=== PATIENT | male | born 1995 | race Caucasian/White ===

== ENCOUNTER 2017-01-04 21:58 | Emergency (ER) | payer OTHER ==
[~2017-01-04] VITALS: Ht 175.3 cm; Wt 70.5 kg
[2017-01-04 22:10] VITALS: BP 141/92
[2017-01-04] MEDS ORDERED: RISP0.253 PO (22:17)
[2017-01-04] MEDS ORDERED: LITH150C PO (22:17)
[2017-01-04] MEDS ORDERED: PLEASE ENTER ALLERGIES MC SCH ×2 (22:30)
[2017-01-04] MEDS ORDERED: LORazepam 1MG TABLET PO ONE (22:30)
[2017-01-04] MEDS ORDERED: LORazepam 1MG TABLET ONE (22:38)
== END 2017-01-04 23:14 | disposition left against medical advice (07) ==
LOC: ED 23:05
DX: F41.1 Generalized anxiety disorder (principal); F43.12 Post-traumatic stress disorder, chronic; F31.9 Bipolar disorder, unspecified
CPT/HCPCS: 99284

== ENCOUNTER 2020-06-01 02:14 | Emergency (ER) | payer MEDICAID, OTHER ==
[~2020-06-01] VITALS: Ht 175.3 cm; Wt 74.0 kg
[~2020-06-01 02:14] MED LIST: LITH150C PO; RISP0.253 PO
--- NOTE | 2020-06-01 02:42 | NUR ---
Pt undressed, belongings in bag x1 to storage locker. Pt provided urine sample. He is calm, pleasant and cooperative. States has never had any SI attempts in his lifetime, has been on meth everyday and stopped taking his abilify and lithium in jan. Says he hears voices not sure what they are saying but he says he has been very anxious and has thoughts of wanting to hurt himself but with no plan. Courtney, snacks provided for pt. Room, security cleared, doors down. Sitter in line of site.
[2020-06-01] MEDS ORDERED: abilify (02:54)
--- NOTE | 2020-06-01 02:55 | NUR ---
x1 bag unsearched belongings labelled and sealed to locked storage cabinet.
[2020-06-01 02:59] LABS: AMPHETAMINE SCREEN, URINE Positive (Negative); BARBITURATE SCREEN, URINE Negative (Negative); BENZODIAZEPINE SCREEN, URINE Negative (Negative); CANNABINOID SCREEN, URINE Positive (Negative); COCAINE SCREEN, URINE Negative (Negative); METHADONE SCREEN, URINE Negative (Negative); OPIATE SCREEN, URINE Negative (Negative)
[2020-06-01 03:03] LABS: BASOPHILS % (AUTO) 1 % (0-1); EOSINOPHILS % (AUTO) 3 % (1-7); LYMPHOCYTES % (AUTO) 38 % (22-44); MEAN CORPUSCULAR HEMOGLOBIN 28.6 pg (27.5-34.5); MEAN CORPUSCULAR HGB CONC 34.3 g/dL (33.2-36.2); MEAN PLATELET VOLUME 9.1 fL (7.4-10.4); MONOCYTES % (AUTO) 7 % (2-9); NEUTROPHILS % (AUTO) 51 % (42-75); PLATELET COUNT 263 x10^3/uL (130-400); RED BLOOD COUNT 5.11 x10^6/uL (4.38-5.82); RED CELL DISTRIBUTION WIDTH 13.2 % (9.4-14.8)
[2020-06-01 03:08] LABS: MD NO
[2020-06-01 03:12] LABS: ALANINE AMINOTRANSFERASE 32 U/L (12-78); ALBUMIN 3.6 g/dL (3.4-5.0); ANION GAP 7 mmol/L (5-15); CALCIUM 8.3 mg/dL (8.5-10.1); CHLORIDE 107 mmol/L (98-107); CREATININE 1.24 mg/dL (0.7-1.3); SALICYLATE LEVEL 2.4 mg/dL (2.8-20.0)
[2020-06-01 03:22] LABS: ALKALINE PHOSPHATASE 87 U/L (45-117); BILIRUBIN,TOTAL 0.3 mg/dL (0.2-1.0); TOTAL PROTEIN 6.5 g/dL (6.4-8.2)
--- NOTE | 2020-06-01 03:23 | NUR ---
Pt ate snacks, drank water. Now resting, eyes closed. Sitter in line of site, will continue to monitor.
--- NOTE | 2020-06-01 03:25 | NUR ---
Informed sitter of current L2K status.
--- NOTE | 2020-06-01 04:07 | NUR ---
Pt sleeping, RR equal and unlabored. Sitter in line of site, will continue to monitor.
--- NOTE | 2020-06-01 04:10 | NUR ---
Packet faxed to [facility]
--- NOTE | 2020-06-01 04:58 | NUR ---
Resting, eyes closed, RR equal and unlabored. Sitter in line of site. Waiting on NNAMS placement.
--- NOTE | 2020-06-01 05:07 | NUR ---
Report to Arcelia Xie
--- NOTE | 2020-06-01 05:13 | NUR ---
BEDSIDE REPORT RECEIVED FROM YO MARQUEZ
--- NOTE | 2020-06-01 06:00 | NUR ---
PT SUPINE ON GURNEY, RESTING COMFORTABLY WITH EYES CLOSED. PT DENIES ANY NEEDS AT THIS TIME. SAFETY PRECAUTIONS IN PLACE AND SITTER IN VIEW.
--- NOTE | 2020-06-01 06:51 | NUR ---
BEDSIDE REPORT TO SHRADDHA MARQUEZ
--- NOTE | 2020-06-01 06:52 | NUR ---
Report from Anne-Marie MARQUEZ. Pt resting in bed with eyes closed, resp even and unlabored, NADN. Room is secured, sitter within eyesight of pt, all safety measures observed.
--- NOTE | 2020-06-01 07:59 | NUR ---
Pt continues resting in bed with eyes closed, resp even and unlabored, NADN. Room remains secured, sitter within eyesight of pt, all safety measures observed.
--- NOTE | 2020-06-01 08:27 | NUR ---
Pt provided meal tray with SI precautions.
--- NOTE | 2020-06-01 09:00 | NUR ---
RECEIVED REPORT AND ASSUMED PT. CARE. PT. WAS GIVEN BREAKFAST AND IS RESTING IN HIS BED. SITTER REMAINS OUTSIDE OF HIS ROOM WITH THE ROOM SECURED AND SI PRECAUTIONS IN PLACE. PT. HAS NO CONCERNS AT THIS TIME.
--- NOTE | 2020-06-01 10:32 | NUR ---
THROUGHPUT RN: CALLED [facility] FOR UPDATE ON PT ACCEPTANCE. SPOKE WITH [facility] BERTHA CUEVAS, "PT IS APPROXIMATELY #10 ON WAIT LIST, CHANGES DAILY, NOT ACCEPTING ANYONE THROUGHT THE , CALL BACK THURSDAY FOR UPDATE, REVIEWED PACKET AND WE HAVE EVERYTHING WE NEED." DISCUSSED WITH ADULT NEUROLOGIST BELLA,PRIMARY RN EMANUEL, AND ZAINAB DRAKE- UPDATED ON PT STATUS, ALL AWARE.
--- NOTE | 2020-06-01 10:37 | NUR ---
PT. REMAINS CALM AND IS RESTING WITHOUT CONCERNS. VSS. PT. DENIES HEARING ANY VOICES THAT ARE TELLING HIM TO HARM HIMSELF TODAY. THE PT. HAS SI SAFETY MEASURES IN PLACE AND IS RESTING AT THIS TIME.
--- NOTE | 2020-06-01 11:11 | NUR ---
CIRO WATT AT THE BEDSIDE TO EVALUATE THE PT.
--- NOTE | 2020-06-01 13:04 | NUR ---
PT. WAS GIVEN LUNCH.
[2020-06-01 13:57] VITALS: BP 115/72
--- NOTE | 2020-06-01 13:57 | NUR ---
THE PT. WAS GIVEN HIS DISCHARGE INSTRUCTIONS AND BELONGINGS. HE IS AMBULATORY WITH A STEADY GAIT. VSS.
== END 2020-06-01 13:59 | disposition home or self-care (01) ==
LOC: ED 02:44
DX: R45.851 Suicidal ideations (principal); F30.8 Other manic episodes; F15.14 Other stimulant abuse with stimulant-induced mood disorder; F25.9 Schizoaffective disorder, unspecified; F17.210 Nicotine dependence, cigarettes, uncomplicated
CPT/HCPCS: 36415; 80053; 80299; 80307; 80320; 80329; 84443; 85025; 99406; G0480

== ENCOUNTER 2020-11-13 06:53 | Emergency (ER) | payer MEDICAID ==
[~2020-11-13] VITALS: Ht 175.3 cm; Wt 69.0 kg
[~2020-11-13 06:53] MED LIST changes: +abilify
--- NOTE | 2020-11-13 07:00 | NUR ---
ASSUMED CARE OF PT. BIB [facility] W/ C/O OF NAUSEA AND BODY ACHE X2 DAYS. PT OFF METH X2DAYS, WAS ACCEPTED TO [facility] WHERE [facility] WAS GOING TO BE TAKING PT BUT HE WAS HOTN 80/40. PIV STARTED MATTE CUTTER, WITH 4 MG ZOFRAN, AND IVF STARTED WITH APPROXIMATELY 600 ML IN. PT IS HOTN, OTHER VS WNL. NADN. PT LAYING ON GURNEY REPORTS HIS NAUSEA HAS IMPROVED. PROVIDED WARM BLANKET PT IS COLD. PT CONFIRMS [facility] WAS SUPPOSED TO TAKE HIME TO [facility] BUT D/T BP WAS BROUGHT HERE. PT DENIES OTHER NEEDS AT THIS TIME. CALL LIGHT W/IN REACH.
[2020-11-13] MEDS ORDERED: SODIUM CHLORIDE 0.9% 1,000ML IVBOLUS ONE (07:30)
[2020-11-13] MEDS ORDERED: KETOROLAC 30 MG/1 ML IVPush ONE (07:30)
[2020-11-13] MEDS ORDERED: ONDANSETRON 2MG/ML, 2ML IVPush ONE (07:30)
[2020-11-13 07:39] LABS: BASOPHILS % (AUTO) 0 % (0-1); EOSINOPHILS % (AUTO) 0 % (1-7); LYMPHOCYTES % (AUTO) 11 % (22-44); MEAN CORPUSCULAR HEMOGLOBIN 28.4 pg (27.5-34.5); MEAN CORPUSCULAR HGB CONC 33.7 g/dL (33.2-36.2); MEAN PLATELET VOLUME 8.5 fL (7.4-10.4); MONOCYTES % (AUTO) 7 % (2-9); NEUTROPHILS % (AUTO) 82 % (42-75); PLATELET COUNT 162 x10^3/uL (130-400); RED BLOOD COUNT 5.29 x10^6/uL (4.38-5.82); RED CELL DISTRIBUTION WIDTH 13.2 % (9.4-14.8)
[2020-11-13] MEDS ORDERED: ONDANSETRON 2MG/ML, 2ML ONE (07:42)
[2020-11-13] MEDS ORDERED: KETOROLAC 30 MG/1 ML ONE (07:42)
[2020-11-13 07:47] LABS: ALANINE AMINOTRANSFERASE 32 U/L (12-78); ALBUMIN 3.3 g/dL (3.4-5.0); ANION GAP 5 mmol/L (5-15); CALCIUM 8.2 mg/dL (8.5-10.1); CHLORIDE 104 mmol/L (98-107); CREATININE 1.16 mg/dL (0.7-1.3)
[2020-11-13 07:49] LABS: ALKALINE PHOSPHATASE 70 U/L (45-117); BILIRUBIN,TOTAL 0.3 mg/dL (0.2-1.0); CREATINE KINASE, TOTAL 205 U/L (39-308); TOTAL PROTEIN 6.4 g/dL (6.4-8.2)
--- NOTE | 2020-11-13 07:52 | NUR ---
PT RESTING COMFORTABLE IN [place], DENIES ANY NEEDS. MEDICATED PER JUL. VSS, CALL LIGHT W/IN REACH.
--- NOTE | 2020-11-13 09:04 | NUR ---
PT IS ASLEEP IN [facility]. DIANA MATTSON. CALL LIGHT W/IN REACH.
[2020-11-13 09:35] VITALS: BP 94/50
--- NOTE | 2020-11-13 09:36 | NUR ---
Patient given discharge instructions and they have confirmed that they understand the instructions. Patient ambulatory with steady gait.
--- NOTE | 2020-11-13 09:46 | NUR ---
PT PROVIDED CRACKERS AND PEANUT BUTTER ON WAY OUT
--- NOTE | 2020-11-13 09:52 | NUR ---
PT LEFT W/O D/C PAPERWORK
== END 2020-11-13 09:54 | disposition home or self-care (01) ==
LOC: ED 08:24
DX: I95.9 Hypotension, unspecified (principal); T67.5XXA Heat exhaustion, unspecified, initial encounter; R11.0 Nausea; M79.10 Myalgia, unspecified site; F15.13 Other stimulant abuse with withdrawal; F17.210 Nicotine dependence, cigarettes, uncomplicated; Z59.0 Homelessness
CPT/HCPCS: 36415; 80053; 82550; 85025; 96361; 96374; 96375; 99284; J1885; J2405; J7030

== ENCOUNTER 2020-11-14 20:55 | Emergency (ER) | payer MEDICAID ==
[~2020-11-14] VITALS: Ht 175.3 cm; Wt 68.0 kg
--- NOTE | 2020-11-14 21:09 | NUR ---
DR. DELEON TO BS FOR EVAL AT THIS TIME.
[2020-11-14] MEDS ORDERED: SODIUM CHLORIDE 0.9% 1,000ML IVBOLUS ONE (21:30)
[2020-11-14] MEDS ORDERED: SODIUM CHLORIDE FLUSH 10ML SYR IVF ONE (21:30)
[2020-11-14] MEDS ORDERED: ACETAMINOPHEN 500 MG TABLET PO ONE (21:30)
[2020-11-14] MEDS ORDERED: KETOROLAC 30 MG/1 ML IVPush ONE (21:30)
[2020-11-14] MEDS ORDERED: ONDANSETRON 2MG/ML, 2ML IVPush ONE (21:30)
[2020-11-14] MEDS ORDERED: ACETAMINOPHEN 500 MG TABLET ONE (21:34)
[2020-11-14] MEDS ORDERED: KETOROLAC 30 MG/1 ML ONE (21:34)
[2020-11-14] MEDS ORDERED: ONDANSETRON 2MG/ML, 2ML ONE (21:34)
[2020-11-14 21:57] LABS: BASOPHILS % (AUTO) 1 % (0-1); EOSINOPHILS % (AUTO) 0 % (1-7); LYMPHOCYTES % (AUTO) 19 % (22-44); MEAN CORPUSCULAR HEMOGLOBIN 28.5 pg (27.5-34.5); MEAN CORPUSCULAR HGB CONC 35.1 g/dL (33.2-36.2); MEAN PLATELET VOLUME 8.7 fL (7.4-10.4); MONOCYTES % (AUTO) 6 % (2-9); NEUTROPHILS % (AUTO) 73 % (42-75); PLATELET COUNT 110 x10^3/uL (130-400); RED BLOOD COUNT 4.97 x10^6/uL (4.38-5.82); RED CELL DISTRIBUTION WIDTH 13.3 % (9.4-14.8)
[2020-11-14 22:09] LABS: ALANINE AMINOTRANSFERASE 36 U/L (12-78); ANION GAP 8 mmol/L (5-15); CALCIUM 7.8 mg/dL (8.5-10.1); CHLORIDE 97 mmol/L (98-107); CREATININE 0.97 mg/dL (0.7-1.3)
[2020-11-14 22:10] LABS: ALBUMIN 2.9 g/dL (3.4-5.0)
[2020-11-14 22:11] LABS: ALKALINE PHOSPHATASE 60 U/L (45-117); BILIRUBIN,TOTAL 0.5 mg/dL (0.2-1.0); TOTAL PROTEIN 6.2 g/dL (6.4-8.2)
[2020-11-14 23:44] VITALS: BP 132/88
== END 2020-11-14 23:46 | disposition home or self-care (01) ==
LOC: ED 22:21
DX: J06.9 Acute upper respiratory infection, unspecified (principal); B34.9 Viral infection, unspecified; Z20.822 Contact with and (suspected) exposure to COVID-19; F17.210 Nicotine dependence, cigarettes, uncomplicated
CPT/HCPCS: 36415; 71045; 80053; 83605; 84145; 85025; 87040; 96361; 96374; 96375; 99284; 99406; J1885; J2405; J7030; U0003; U0005

== ENCOUNTER 2020-11-23 09:04 | Emergency (ER) | payer SELFPAY ==
[~2020-11-23] VITALS: Ht 175.3 cm; Wt 70.0 kg
[2020-11-23 09:11] VITALS: BP 120/81
--- NOTE | 2020-11-23 09:30 | NUR ---
PT BIB EMS FOR PSYCH. PT DENIES SI/SA. JUST WANTS FOOD
--- NOTE | 2020-11-23 10:55 | NUR ---
Patient given discharge instructions and they have confirmed that they understand the instructions. Patient ambulatory with steady gait.
== END 2020-11-23 10:56 | disposition home or self-care (01) ==
LOC: ED 09:13
DX: F99 Mental disorder, not otherwise specified (principal)
CPT/HCPCS: 99283